=== PATIENT | female | born 1995 | race Caucasian/White ===

== ENCOUNTER → 2019-05-19 10:30 | Outpatient (BNVA) | payer OTHER, SELFPAY | PROVIDERS: Visit Provider Obstetrics & Gynecology Female Pelvic Medicine and Reconstructive Surgery | DX: R10.2 Pelvic and perineal pain (principal) | CPT/HCPCS: 81001 ==

== ENCOUNTER → 2019-05-24 08:08 | Outpatient (BNVA) | payer OTHER, SELFPAY | PROVIDERS: Referring Provider Obstetrics & Gynecology Female Pelvic Medicine and Reconstructive Surgery; Visit Provider Obstetrics & Gynecology Female Pelvic Medicine and Reconstructive Surgery | DX: R10.2 Pelvic and perineal pain (principal); D25.9 Leiomyoma of uterus, unspecified; N83.291 Other ovarian cyst, right side | CPT/HCPCS: 76830 ==